=== PATIENT | female | born 2000 | race Caucasian/White ===

== ENCOUNTER 2021-10-30 15:37 | Emergency (ER) | payer OTHER ==
[2021-10-30 16:29] LABS: HEMOGLOBIN 12.4 gm/dl (12.3-15.3); RED BLOOD COUNT 5.07 M/UL (4.00-5.10); WHITE BLOOD COUNT 11.5 K/UL (4.5-11.0)
[2021-10-30 16:50] LABS: BUN/CREATININE RATIO 16 (0-10)
[2021-10-30] MEDS ORDERED: KLOR-CON 1010 MEQ PO (21:18)
[2021-10-30] MEDS ORDERED: REGLAN10 MG PO (21:18)
== END 2021-10-30 21:35 | disposition home or self-care (01) ==
LOC: ER1 15:37
PROVIDERS: Physician Assistant
DX: O21.9 Vomiting of pregnancy, unspecified (principal); E87.6 Hypokalemia; Z3A.09 9 weeks gestation of pregnancy
CPT/HCPCS: 80053; 81001; 83690; 85025; 86900; 86901; 87086; 96374; 96375; 96376; 99284; J2765